=== PATIENT | male | born 1990 | race Caucasian/White ===

== ENCOUNTER 2020-11-08 13:35 | Emergency (ER) | payer SELFPAY ==
[~2020-11-08] VITALS: Ht 180.3 cm; Wt 85.7 kg
[2020-11-08 14:05] VITALS: BP 101/73
--- NOTE | 2020-11-08 14:05 | NUR ---
TO LOBBY A/W BED AMBULATORY
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
[2020-11-08] MEDS ORDERED: NAPR-54 PO (15:17)
[2020-11-08 15:32] VITALS: BP 101/73
== END 2020-11-08 15:32 | disposition home or self-care (01) ==
LOC: MED 13:35
DX: S80.02XA Contusion of left knee, initial encounter (principal); S80.01XA Contusion of right knee, initial encounter; S60.222A Contusion of left hand, initial encounter; V49.9XXA Car occupant (driver) (passenger) injured in unspecified traffic accident, initial encounter; Y93.89 Activity, other specified; Y92.89 Other specified places as the place of occurrence of the external cause; Y99.8 Other external cause status
CPT/HCPCS: 73130; 73562; 99284